=== PATIENT | female | born 1965 | race Caucasian/White ===

== ENCOUNTER 2018-04-05 18:37 | Inpatient (IN) ==
--- NOTE | 2018-04-05 18:55 | Emergency Department Note ---
Disposition Clinical Impression: Depression, Suicidal ideation Disposition: Still a Patient General Adult HPI - General Chief complaint: ED Psychiatric Symptoms Stated complaint: 1a Time Seen by Provider: 04/05/18 18:43 - History of Present Illness Pain Scale: 0 - Related Data Home Medications Medication Instructions Recorded Confirmed LORazepam 11/13/17 Lamictal 11/13/17 RisperiDONE 11/13/17 Previous Rx's Medication Instructions Recorded Naproxen [Naprosyn] 500 mg PO BID 7 Days tablet 02/10/18 Allergies Allergy/AdvReac Type Severity Reaction Status Date / Time Penicillins Allergy Difficulty Verified 04/05/18 18:53 Breathing Past Medical History - Past Medical History Medical history: Reports: no medical history Surgical history: Reports: no surgical history, hysterectomy Psychiatric history: Reports: anxiety, depression, prior suicide attempt, previous psychiatric hospitalization - Social History Smoking Status: Current every day smoker Smokeless Tobacco Status: No Alcohol use: Reports: none Drug use: Reports: none Course Vital Signs Temperature 98.3 F 04/05/18 18:38 Pulse Rate 74 04/05/18 18:38 Respiratory Rate 15 04/05/18 18:38 Blood Pressure 148/108 04/05/18 18:38 O2 Sat by Pulse Oximetry 96 04/05/18 18:38 Temperature 98.3 F 04/05/18 18:38 Pulse Rate 74 04/05/18 18:38 Respiratory Rate 15 04/05/18 18:38 Blood Pressure 148/108 04/05/18 18:38 O2 Sat by Pulse Oximetry 96 04/05/18 18:38 Oxygen Delivery Oxygen Delivery Room Air Attestation Statement - Attestation Attestation: I examined this patient and my medical decision-making was reviewed with the Resident Physician. I agree with the documented findings, disposition and treatment plan as described except to the extent set forth below. 52-year-old female presents emergency room for suicidal ideation. Patient states she wants to hang herself. Admits to being depressed. Previous suicidal attempt in 2014 and when she tried to shoot himself in the head. We will check screening psychiatric lab work and drug urine screen.
--- NOTE | 2018-04-05 18:56 | Emergency Department Note ---
Disposition Clinical Impression: Suicidal ideation, Hypokalemia Depression Qualifiers: Depression Type: unspecified Qualified Code(s): F32.9 - Major depressive disorder, single episode, unspecified Disposition: Admitted As Inpatient Condition: Good Referrals: NONE,PCP [Primary Care Provider] - Forms: ED Satisfaction Letter Psych HPI - General Chief Complaint: ED Psychiatric Symptoms Stated Complaint: 1a Time Seen by Provider: 04/05/18 18:43 Source: patient Mode of arrival: private vehicle Limitations: no limitations Nursing Notes Reviewed: Yes Vital Signs Reviewed: Yes - History of Present Illness HPI Narrative: 52-year-old female history of anxiety, depression and bipolar disorder currently on medications reports compliance with a complaint of suicidal ideation for the last 6 weeks. States that she tried to kill herself once before by shooting herself in the head. States that now she would hang herself. Denies any alcohol or drug abuse. Denies any homicidal ideation. Does report auditory hallucinations. Pt complaint: suicidal ideation Onset (ago): week(s) Duration: constant History of similar episodes: Yes Improves with: none Worsens with: none Alleged intoxication: No Associated Psychiatric Symptoms: suicidal ideation Associated symptoms: Reports: denies other symptoms Traumatic symptoms: denies traumatic injury Treatments prior to arrival: none Self harm or harm to others: admits thoughts of self harm, has plan - Related Data Home Medications Medication Instructions Recorded Confirmed LORazepam 0.5 mg PO QID 11/13/17 04/05/18 Cariprazine HCl [Vraylar] 3 mg PO DAILY 04/05/18 04/05/18 Allergies Allergy/AdvReac Type Severity Reaction Status Date / Time Penicillins Allergy Difficulty Verified 04/05/18 18:53 Breathing All systems ED: reviewed and negative except as stated. Psychiatric: Reports: anxiety, depression, suicidal thoughts, auditory hallucinations. Denies: homicidal thoughts, visual hallucinations Past Medical History - Past Medical History Attestation: Yes The following information was validated with the patient. Source: patient Medical history: Reports: no medical history Surgical history: Reports: no surgical history, hysterectomy Psychiatric history: Reports: anxiety, depression, prior suicide attempt, previous psychiatric hospitalization - Social History Smoking Status: Current every day smoker Smokeless Tobacco Status: No Alcohol use: Reports: none Drug use: Reports: none Physical Exam - General Limitations: no limitations General appearance: alert, in no apparent distress - Head Head exam: atraumatic, normocephalic - Eye Eye exam: Present: normal appearance - ENT ENT exam: normal exam - Neck Neck exam: Present: normal inspection, full ROM - Chest Chest inspection: Present: normal inspection, symmetric chest wall rise - Respiratory Respiratory exam: Present: normal lung sounds bilaterally - Cardiovascular Cardiovascular exam: Present: regular rate, normal rhythm, normal heart sounds - Abdominal Exam Abdominal exam: Present: soft, Non-Tender. Absent: tenderness, distention, rigidity - Extremities Exam Extremities exam: Present: normal inspection, full ROM - Expanded Upper Extremity Exam Shoulder exam: Present: normal inspection, full ROM Arm exam: Present: normal inspection, full ROM Elbow exam: Present: normal inspection, full ROM Forearm/Wrist exam: Present: normal inspection, full ROM Hand exam: Present: normal inspection, full ROM - Expanded Lower Extremity Exam Hip/Pelvis exam: Present: normal inspection, full ROM Upper leg exam: Present: normal inspection, full ROM Knee exam: Present: normal inspection, full ROM Lower leg exam: Present: normal inspection, full ROM Ankle exam: Present: normal inspection, full ROM Foot/toe exam: Present: normal inspection, full ROM - Neurological Exam Neurological exam: Present: alert, other (GCS 15. No focal deficits.) - Psychiatric Psychiatric exam: Present: suicidal ideation - Skin Skin exam: Present: warm, dry Course Course Narrative: Patient seen and examined. Vital signs reviewed. [place] slipped for suicidal ideation. Medical clearance labs ordered. - Reevaluation(s) Reevaluation #1: Patient medically cleared. She is accepted to psychiatry for further management. Vital Signs Temperature 98.3 F 04/05/18 18:38 Pulse Rate 74 04/05/18 18:38 Respiratory Rate 15 04/05/18 18:38 Blood Pressure 148/108 04/05/18 18:38 O2 Sat by Pulse Oximetry 96 04/05/18 18:38 Temperature 98.3 F 04/05/18 18:58 Pulse Rate 74 04/05/18 18:58 Respiratory Rate 15 04/05/18 18:58 Blood Pressure 148/108 04/05/18 18:58 O2 Sat by Pulse Oximetry 96 04/05/18 18:58 Oxygen Delivery Oxygen Delivery Room Air Psych - MDM Narrative Medical decision making narrative: 52-year-old female presenting with suicidal ideation for several weeks. She is alert and appropriate here. Labs are grossly unremarkable and medically cleared. The patient is admitted to the psychiatry service for further management. - Lab Data Lab results reviewed: Yes I reviewed the patient's lab results. Result diagrams: 04/05/18 18:59 04/05/18 18:59 Lab Results 04/05/18 04/05/18 04/05/18 Range/Units 18:59 18:59 19:14 WBC 8.2 (4.3-11.1) K/mcL RBC 4.58 (3.82-4.97) M/mcL Hgb 15.0 (11.5-15.4) g/dL Hct 44.2 (35.3-44.9) % MCV 96.5 (83.0-100.0) fL MCH 32.8 (28.0-33.3) pg MCHC 33.9 (31.6-35.5) g/dL RDW 14.2 (11.5-14.5) % Plt Count 374 (140-400) K/mcL MPV 8.7 L (9.4-12.4) fL Immature Gran % 0.2 (0-4) % Seg Neutrophils % 56.1 % Lymphocytes % 35.6 % Monocytes % 6.7 % Eosinophils % 0.6 % Basophils % 0.8 % Neutrophils # 4.6 (1.6-8.9) K/mcL Lymphocytes # 2.9 (0.6-4.6) K/mcL Monocytes # 0.6 (0.0-1.3) K/mcL Eosinophils # 0.1 (0.0-0.6) K/mcL Basophils # 0.1 (0.0-0.2) K/mcL Sodium 135 L (136-145) mEq/L Potassium 3.1 L (3.5-5.1) mEq/L Chloride 101 (98-107) mEq/L Carbon Dioxide 26 (23-29) mEq/L BUN 8 (6-20) mg/dL Creatinine 0.54 L (0.60-1.20) mg/dL Est GFR ( Amer) > 60 (> 60) Est GFR (Non-Af Amer) > 60 (> 60) BUN/Creatinine Ratio 15 (6-26) Glucose 97 (70-105) mg/dL Calculated Osmolality 278 L (280-300) Calcium 9.2 (8.6-10.3) mg/dL Urine Color (Yellow) Urine Clarity (Clear) Urine pH (5.0-8.0) pH Units Ur Specific [place] (1.010-1.025) Urine Protein (Neg-Trace) mg/dL Urine Glucose (UA) (Normal) mg/dL Urine Ketones (Negative) mg/dL Urine Blood (Negative) Urine Nitrite (Negative) Urine Bilirubin (Negative) Urine Urobilinogen (Normal) mg/dL Ur Leukocyte Esterase (Negative) Urine Microscopic RBC (0-3) per hpf Urine Microscopic WBC (0-3) per hpf Ur Squamous Epith Cells (None-Few) per lpf Urine Bacteria (None-Few) per hpf Hyaline Casts (None-Few) per lpf Salicylates < 2.5 L (15.0-30.0) mg/dL Acetaminophen < 10 L (10-20) mcg/mL Ur Drug Screen Interp See Below Ethyl Alcohol < 10 (Less than 10) mg/dL 04/05/18 Range/Units 19:16 WBC (4.3-11.1) K/mcL RBC (3.82-4.97) M/mcL Hgb (11.5-15.4) g/dL Hct (35.3-44.9) % MCV (83.0-100.0) fL MCH (28.0-33.3) pg MCHC (31.6-35.5) g/dL RDW (11.5-14.5) % Plt Count (140-400) K/mcL MPV (9.4-12.4) fL Immature Gran % (0-4) % Seg Neutrophils % % Lymphocytes % % Monocytes % % Eosinophils % % Basophils % % Neutrophils # (1.6-8.9) K/mcL Lymphocytes # (0.6-4.6) K/mcL Monocytes # (0.0-1.3) K/mcL Eosinophils # (0.0-0.6) K/mcL Basophils # (0.0-0.2) K/mcL Sodium (136-145) mEq/L Potassium (3.5-5.1) mEq/L Chloride (98-107) mEq/L Carbon Dioxide (23-29) mEq/L BUN (6-20) mg/dL Creatinine (0.60-1.20) mg/dL Est GFR ( Amer) (> 60) Est GFR (Non-Af Amer) (> 60) BUN/Creatinine Ratio (6-26) Glucose (70-105) mg/dL Calculated Osmolality (280-300) Calcium (8.6-10.3) mg/dL Urine Color Dark Yellow (Yellow) Urine Clarity Clear (Clear) Urine pH 5.5 (5.0-8.0) pH Units Ur Specific [place] 1.028 H (1.010-1.025) Urine Protein Trace (Neg-Trace) mg/dL Urine Glucose (UA) Normal (Normal) mg/dL Urine Ketones Negative (Negative) mg/dL Urine Blood Negative (Negative) Urine Nitrite Negative (Negative) Urine Bilirubin Small H (Negative) Urine Urobilinogen Normal (Normal) mg/dL Ur Leukocyte Esterase Negative (Negative) Urine Microscopic RBC 5-15 H (0-3) per hpf Urine Microscopic WBC 5-15 H (0-3) per hpf Ur Squamous Epith Cells Many H (None-Few) per lpf Urine Bacteria Moderate H (None-Few) per hpf Hyaline Casts None Seen (None-Few) per lpf Salicylates (15.0-30.0) mg/dL Acetaminophen (10-20) mcg/mL Ur Drug Screen Interp Ethyl Alcohol (Less than 10) mg/dL Psychiatric Medical Clearance - Medical Clearance Checklist Medical History: No Social History Section defined Current Vitals: Last Vital Signs Temp 98.3 F 04/05/18 18:58 Pulse 74 04/05/18 18:58 Resp 15 04/05/18 18:58 BP 148/108 04/05/18 18:58 Pulse Ox 96 04/05/18 18:58 Psychiatric Lab Panel: Drug Levels and Toxicity 04/05/18 18:59 Acetaminophen < 10 L Ethyl Alcohol < 10 Abnormal Labs: Abnormal lab results MPV 8.7 fL (9.4-12.4) L 04/05/18 18:59 Sodium 135 mEq/L (136-145) L 04/05/18 18:59 Potassium 3.1 mEq/L (3.5-5.1) L 04/05/18 18:59 Creatinine 0.54 mg/dL (0.60-1.20) L 04/05/18 18:59 Calculated Osmolality 278 (280-300) L 04/05/18 18:59 Ur Specific [place] 1.028 (1.010-1.025) H 04/05/18 19:16 Urine Bilirubin Small (Negative) H 04/05/18 19:16 Urine Microscopic RBC 5-15 per hpf (0-3) H 04/05/18 19:16 Urine Microscopic WBC 5-15 per hpf (0-3) H 04/05/18 19:16 Ur Squamous Epith Cells Many per lpf (None-Few) H 04/05/18 19:16 Urine Bacteria Moderate per hpf (None-Few) H 04/05/18 19:16 Salicylates < 2.5 mg/dL (15.0-30.0) L 04/05/18 18:59 Acetaminophen < 10 mcg/mL (10-20) L 04/05/18 18:59 Statement of Medical Clearance: I have evaluated the patient, reviewed diagnostic information, and certify that the patient's medical condition is sufficiently stable that transfer to the psychiatric unit does not pose a significant risk of deterioration.
[2018-04-05 19:29] LABS: Bilirubin,Urine Small (Negative); Blood,Urine Negative (Negative); Clarity,Urine Clear (Clear); Color,Urine Dark Yellow (Yellow); Glucose,Urine (UA) Normal (Normal); Ketones,Urine Negative (Negative); Leukocyte Esterase,Urine Negative (Negative); Nitrite,Urine Negative (Negative); PH,Urine 5.5 pH Units (5.0-8.0); Protein,Urine Trace mg/dL (Neg-Trace); Specific Gravity,Urine 1.028 (1.010-1.025); Urobilinogen,Urine Normal (Normal)
[2018-04-05 19:31] LABS: Bacteria,Urine Moderate per hpf (None-Few); Hyaline Casts,Urine None Seen per lpf (None-Few); Squamous Epithelial Cell,Urine Many per lpf (None-Few)
[2018-04-05 19:38] LABS: Basophils # 0.1 K/mcL (0.0-0.2); Basophils % 0.8 %; Eosinophils # 0.1 K/mcL (0.0-0.6); Eosinophils % 0.6 %; Hematocrit 44.2 % (35.3-44.9); Immature Granulocytes % 0.2 % (0-4); Lymphocytes # 2.9 K/mcL (0.6-4.6); Lymphocytes % 35.6 %; Mean Corpuscular HGB Conc 33.9 g/dL (31.6-35.5); Mean Corpuscular Hemoglobin 32.8 pg (28.0-33.3); Mean Corpuscular Volume 96.5 fL (83.0-100.0); Mean Platelet Volume 8.7 fL (9.4-12.4); Monocytes # 0.6 K/mcL (0.0-1.3); Monocytes % 6.7 %; Neutrophils # 4.6 K/mcL (1.6-8.9); Platelet Count 374 K/mcL (140-400); Red Blood Count 4.58 M/mcL (3.82-4.97); Red Cell Distribution Width 14.2 % (11.5-14.5); Segmented Neutrophils % 56.1 %
[2018-04-05 19:53] LABS: Acetaminophen < 10 mcg/mL (10-20); BUN/Creatinine Ratio 15 (6-26); Blood Urea Nitrogen 8 mg/dL (6-20); Calcium 9.2 mg/dL (8.6-10.3); Carbon Dioxide 26 mEq/L (23-29); Chloride 101 mEq/L (98-107); Ethanol < 10 mg/dL (Less than 10); Glucose 97 mg/dL (70-105); Osmolality,Calculated 278 (280-300); Potassium 3.1 mEq/L (3.5-5.1); Salicylate < 2.5 mg/dL (15.0-30.0); Sodium 135 mEq/L (136-145); eGFR For Non-African Americans > 60 (> 60)
[2018-04-05] MEDS ORDERED: MOM Conc 10 ML UD.LIQ PO PRN (20:19)
[2018-04-05] MEDS ORDERED: Mag Hydrox/Al Hydrox/Simeth 30 ML UDC PO PRN (20:19)
[2018-04-05] MEDS ORDERED: *HR* LORazepam 1 MG TABLET PO PRN (20:19)
[2018-04-05] MEDS ORDERED: *HR* LORazepam 2 MG/ML VIAL IM PRN (20:19)
[2018-04-05] MEDS ORDERED: Haloperidol Lactate 5 MG/ML VIAL IM PRN (20:19)
[2018-04-05] MEDS ORDERED: traZODone 50 MG TABLET PO PRN (20:19)
[2018-04-05] MEDS ORDERED: hydrOXYzine pamoate 25 MG CAPSULE PO PRN (20:19)
[2018-04-05 20:23] LABS: Amphetamine Screen,Urine Negative ng/mL (Cutoff=1000); Barbiturate Screen,Urine Negative ng/mL (Cutoff=200); Benzodiazepines Screen,Urine Positive ng/mL (Cutoff=200); Cannabinoid Screen,Urine Positive ng/mL (Cutoff = 50); Cocaine Screen,Urine Positive ng/mL (Cutoff= 300); Opiate Screen,Urine Negative ng/mL (Cutoff=300); Phencyclidine Screen,Urine Negative ng/mL (Cutoff=25)
[2018-04-05] MEDS ORDERED: Mirtazapine 15 MG TABLET PO SCH (21:00)
[2018-04-05] MEDS: Acetaminophen 325 MG TABLET PO PRN (22:22)
[2018-04-05] MEDS: ALPRAZolam 1 MG TABLET PO PRN (22:23)
[2018-04-06] MEDS: VRAYLAR 3 MG PO SCH (08:51)
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
[2018-04-06] MEDS: ALPRAZolam 1 MG TABLET PO SCH (20:30)
[2018-04-06] MEDS: Mirtazapine 15 MG TABLET PO SCH (20:30)
[2018-04-06] MEDS: Acetaminophen 325 MG TABLET PO PRN (20:30)
[2018-04-06] MEDS: ALPRAZolam 1 MG TABLET PO PRN (21:25)
[2018-04-07] MEDS: ALPRAZolam 1 MG TABLET PO SCH ×2 (09:38→21:56)
[2018-04-07] MEDS: VRAYLAR 3 MG PO SCH (09:39)
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
[2018-04-07] MEDS: Mirtazapine 15 MG TABLET PO SCH (21:56)
[2018-04-08] MEDS: ALPRAZolam 1 MG TABLET PO PRN (00:07)
[2018-04-08] MEDS: Acetaminophen 325 MG TABLET PO PRN (00:08)
[2018-04-08] MEDS: ALPRAZolam 1 MG TABLET PO SCH (09:37)
[2018-04-08] MEDS: VRAYLAR 3 MG PO SCH (09:38)
[2018-04-08 10:45] VITALS: BP 112/75
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
== END 2018-04-08 13:20 | disposition home or self-care (01) | DRG 753 ==
LOC: EMEROOARM 18:37 → 1ANU 20:17
PROVIDERS: ADMIT Psychiatry & Neurology Forensic Psychiatry; ATTEND Psychiatry & Neurology Forensic Psychiatry